=== PATIENT | female | born 1970 | race Caucasian/White ===

== ENCOUNTER → 2022-03-15 | Outpatient (CLI) | payer BC | END | disposition home or self-care (01) | LOC: LABWHC1 12:55 | PROVIDERS: ATTEND Family Medicine | DX: R00.2 Palpitations (principal) | CPT/HCPCS: 36415; 93005 ==

== ENCOUNTER → 2022-12-23 | Outpatient (CLI) | payer BC ==
--- NOTE | 2022-12-23 08:21 | MM ---
Reason for Exam: Screening (asymptomatic). Last mammogram was performed 10 year(s) and 1 month(s) ago. Patient History: Menarche at age 11. Patient has no children. Postmenopausal. Excisional Biopsy on the Left side. Risk Values: Tamara 5 year model risk: 1.5%. NCI Lifetime model risk: 10.8%. Prior Study Comparison: 11/03/2003 Bilateral Screening Mammogram, [facility]. 11/19/2012 Bilateral Screening Mammogram, [facility]. Tissue Density: The breast tissue is heterogeneously dense. This may lower the sensitivity of mammography. Findings: Analyzed By CAD. There are loosely tiny benign-appearing punctate calcifications redemonstrated throughout the bilateral breasts. There is no suspicious new group of microcalcifications or new suspicious mass in either breast. Overall Assessment: Benign, BI-RAD 2 Management: Screening Mammogram of both breasts in 1 year. A clinical breast exam by your physician is recommended on an annual basis and results should be correlated with mammographic findings. Electronically signed and approved by: Hal Villaseñor M.D.
== END | disposition home or self-care (01) ==
LOC: RADMAMWWP 12:00
PROVIDERS: ATTEND Family Medicine
DX: Z12.31 Encounter for screening mammogram for malignant neoplasm of breast (principal); Z78.0 Asymptomatic menopausal state
CPT/HCPCS: 77063; 77067

== ENCOUNTER → 2024-04-02 | Outpatient (CLI) | payer BC ==
--- NOTE | 2024-04-08 09:04 | MM ---
Reason for Exam: Screening (asymptomatic). Last mammogram was performed 1 year(s) and 3 month(s) ago. Patient History: Menarche at age 11. Patient has no children. Postmenopausal. Excisional Biopsy on the Left side. Risk Values: Tamara 5 year model risk: 1.6%. NCI Lifetime model risk: 10.4%. Prior Study Comparison: 11/03/2003 Bilateral Screening Mammogram, [facility]. 11/19/2012 Bilateral Screening Mammogram, [facility]. 12/22/2022 Bilateral MG 3D screening mammo w/cad, [facility]. Tissue Density: The breasts are extremely dense, which lowers the sensitivity of mammography. Findings: Analyzed By CAD. There is no suspicious group of microcalcifications or new suspicious mass in either breast. Overall Assessment: Benign, BI-RAD 2 Management: Screening Mammogram of both breasts in 1 year. . Patient should continue monthly self-breast exams. A clinical breast exam by your physician is recommended on an annual basis. This exam should not preclude additional follow-up of suspicious palpable abnormalities. Note on Tamara scores and lifetime risk: 1. A Tamara score greater than 3% is considered moderate risk. If this is the case, consider specialist referral to assess eligibility for a risk reducing agent. 2. If overall lifetime risk for the development of breast cancer is 20% or higher, the patient may qualify for future screening with alternating mammogram and breast MRI. Electronically signed and approved by: Mehul Hui M.D. Radiologis
== END | disposition home or self-care (01) ==
LOC: RADMAMWWP 10:51
PROVIDERS: ATTEND Family Medicine
DX: Z12.31 Encounter for screening mammogram for malignant neoplasm of breast (principal); R92.343 Mammographic extreme density, bilateral breasts; Z78.0 Asymptomatic menopausal state
CPT/HCPCS: 77063; 77067

== ENCOUNTER → 2025-04-03 | Outpatient (CLI) | payer BC ==
--- NOTE | 2025-04-03 11:28 | MM ---
Reason for Exam: Screening (asymptomatic). Last screening mammogram was performed 12 month(s) ago. Patient History: Menarche at age 11. Patient has no children. Postmenopausal. Excisional Biopsy on the Left side. Risk Values: Tamara 5 year model risk: 1.7%. NCI Lifetime model risk: 10.2%. Prior Study Comparison: 11/19/2012 Bilateral Screening Mammogram, [facility]. 12/22/2022 Bilateral MG 3D screening mammo w/cad, [facility]. 04/02/2024 Bilateral MG 3D screening mammo w/cad, [facility]. Tissue Density: The breasts are extremely dense, which lowers the sensitivity of mammography. Findings: Analyzed By CAD. Loosely grouped calcifications upper outer right breast. Recommend spot magnification view. Benign-appearing additional calcifications. No dominant mass. No architectural distortion. Overall Assessment: Incomplete: need additional imaging evaluation, BI-RAD 0 Management: Special View Mammogram of the right breast. . Patient should continue monthly self-breast exams. A clinical breast exam by your physician is recommended on an annual basis. This exam should not preclude additional follow-up of suspicious palpable abnormalities. Note on Tamara scores and lifetime risk: 1. A Tamara score greater than 3% is considered moderate risk. If this is the case, consider specialist referral to assess eligibility for a risk reducing agent. 2. If overall lifetime risk for the development of breast cancer is 20% or higher, the patient may qualify for future screening with alternating mammogram and breast MRI. [facility], , 04/03/2025 11:24 AM. Electronically signed and approved by: Abdirashid Fry M.D. Radiologis
== END | disposition home or self-care (01) ==
LOC: RADMAMWWP 10:39
PROVIDERS: ATTEND Family Medicine
DX: Z12.31 Encounter for screening mammogram for malignant neoplasm of breast (principal); R92.343 Mammographic extreme density, bilateral breasts; Z78.0 Asymptomatic menopausal state
CPT/HCPCS: 77063; 77067

== ENCOUNTER → 2025-04-10 | Outpatient (CLI) | payer BC ==
--- NOTE | 2025-04-10 08:35 | MM ---
Reason for Exam: Additional evaluation requested from prior study. Last screening mammogram was performed less than 1 month ago. Patient History: Menarche at age 11. Patient has no children. Postmenopausal. Excisional Biopsy on the Left side. Risk Values: Tamara 5 year model risk: 1.7%. NCI Lifetime model risk: 10.2%. Tissue Density: Right: There are scattered areas of fibroglandular density. Findings: Analyzed By CAD. Calcification seen in the right breast posterior depth upper abdomen stable since 2012. No new suspicious masses, calcifications or distortions. Overall Assessment: Benign, BI-RAD 2 Management: Screening Mammogram of both breasts in 1 year. Results were given to the patient verbally at the time of exam. Patient should continue monthly self-breast exams. A clinical breast exam by your physician is recommended on an annual basis. This exam should not preclude additional follow-up of suspicious palpable abnormalities. Note on Tamara scores and lifetime risk: 1. A Tamara score greater than 3% is considered moderate risk. If this is the case, consider specialist referral to assess eligibility for a risk reducing agent. 2. If overall lifetime risk for the development of breast cancer is 20% or higher, the patient may qualify for future screening with alternating mammogram and breast MRI. [facility], , 04/10/2025 8:32 AM. Electronically signed and approved by: Otto Martinez DO
== END | disposition home or self-care (01) ==
LOC: RADMAMWWP 07:59
PROVIDERS: ATTEND Family Medicine
DX: R92.8 Other abnormal and inconclusive findings on diagnostic imaging of breast (principal); R92.321 Mammographic fibroglandular density, right breast; Z78.0 Asymptomatic menopausal state
CPT/HCPCS: 77061; 77065